=== PATIENT | male | born 1960 | race African-American/Black ===

== ENCOUNTER 2017-10-06 09:56 | Emergency (ER) | payer SELFPAY ==
[~2017-10-06] VITALS: Ht 180.3 cm; Wt 100.0 kg
[~2017-10-06 09:56] MED LIST: 1-ME1LIQ PO; GEMF600T PO; HYDR-2768 PO; LISI-363 PO; NAPR500 PO
[2017-10-06 09:59] VITALS: BP 192/120; PULSE 94; RESP 18; TEMP 98; O2SAT 97
[2017-10-06] MEDS ORDERED: HYDR25TA5 PO (10:17)
[2017-10-06] MEDS ORDERED: bp med PO (10:17)
[2017-10-06 10:18] VITALS: BP 178/120; PULSE 61
[2017-10-06 10:25] VITALS: BP_SYST 179; BP_SYST 180; BP_DIAS 113; BP_DIAS 115
[2017-10-06] MEDS ORDERED: SODIUM CHLORIDE 0.9% FLUSH 10 ML FLUSH IVF PRN (10:45)
[2017-10-06 10:57] LABS: AUTOMATED NEUTROPHIL # 5.7 TH/MM3 (1.8-7.7); BASOPHIL % 0.3 % (0.0-2.0); EOSINOPHIL # 0.2 TH/MM3 (0-0.4); EOSINOPHIL % 2.4 % (0.0-4.0); HEMATOCRIT 37.4 % (39.0-51.0); HEMOGLOBIN 12.6 GM/DL (13.0-17.0); LYMPH % 18.9 % (9.0-44.0); LYMPHOCYTE # 1.5 TH/MM3 (1.0-4.8); MEAN CORPUSCULAR HEMOGLOBIN 29.3 PG (27.0-34.0); MEAN CORPUSCULAR HGB CONC 33.7 % (32.0-36.0); MEAN PLATELET VOLUME 9.9 FL (7.0-11.0); MONO % 6.3 % (0.0-8.0); MONOCYTE # 0.5 TH/MM3 (0-0.9); NEUT % 72.1 % (16.0-70.0); PLATELET COUNT 277 TH/MM3 (150-450); RED CELL DISTRIBUTION WIDTH 16.5 % (11.6-17.2); WHITE BLOOD COUNT 7.9 TH/MM3 (4.0-11.0)
--- NOTE | 2017-10-06 11:01 | PD ---
HPI Chief Complaint: Hypertension Time Seen by Provider: 10:04 Travel History International Travel<30 days: No Contact w/Intl Traveler<30days: No Traveled to known affect area: No History of Present Illness HPI Patient is a 57-year-old male presents the emergency room for evaluation of hypertension. Patient reports that he has history of hypertension, he is on multiple medications for his blood pressure but cannot remember the names of his medications. Patient reports that he went to [facility] today for follow-up (well person check) and was told to come directly to the emergency room for evaluation as his blood pressure was over 200 systolic. Patient reports that he has been compliant with his blood pressure medications, reports that he does not remember which medications he is on at this time. Patient denies any headache or dizziness, denies any chest pain or shortness of breath. Patient denies any vision changes. Patient with absolutely no complaints in the emergency room. PFSH Past Medical History Hypertension: Yes Influenza Vaccination: No Past Surgical History Surgical History: No Previous Surgery Social History Alcohol Use: Yes (occas beer) Tobacco Use: Yes Substance Use: No Allergies-Medications (Allergen,Severity, Reaction): Coded Allergies: No Known Allergies (Unverified Adverse Reaction, Unknown, 10/06/17) Reported Meds & Prescriptions Reported Meds & Active Scripts Active Norvasc (Amlodipine Besylate) 5 Mg Tab 5 Mg PO DAILY Reported Metoprolol Tartrate 100 Mg Tab 100 Mg PO BID Hydrochlorothiazide 25 Mg Tab 25 Mg PO DAILY Review of Systems General / Constitutional: No: Fever Eyes: No: Visual changes HENT: No: Headaches Cardiovascular: No: Chest Pain or Discomfort Respiratory: No: Shortness of Breath Gastrointestinal: No: Abdominal Pain Genitourinary: No: Dysuria Musculoskeletal: No: Pain Skin: No Rash Neurologic: No: Weakness Psychiatric: No: Depression Endocrine: No: Polydipsia Hematologic/Lymphatic: No: Easy Bruising Physical Exam Narrative GENERAL: No acute distress, nontoxic SKIN: Focused skin assessment warm/dry. HEAD: Atraumatic. Normocephalic. EYES: Pupils equal and round. No scleral icterus. No injection or drainage. ENT: No nasal bleeding or discharge. Mucous membranes pink and moist. NECK: Trachea midline. No JVD. CARDIOVASCULAR: Regular rate and rhythm. No murmur appreciated. RESPIRATORY: No accessory muscle use. Clear to auscultation. Breath sounds equal bilaterally. GASTROINTESTINAL: Abdomen soft, non-tender, nondistended. Hepatic and splenic margins not palpable. MUSCULOSKELETAL: No obvious deformities. No clubbing. No cyanosis. No edema. NEUROLOGICAL: Awake and alert. No obvious cranial nerve deficits. Motor grossly within normal limits. Normal speech. PSYCHIATRIC: Appropriate mood and affect; insight and judgment normal. Data Data Last Documented VS Vital Signs Date Time Temp Pulse Resp B/P (MAP) Pulse Ox O2 Delivery O2 Flow Rate FiO2 10/06/17 10:25 180/113 (135) 179/115 (136) 10/06/17 10:18 61 10/06/17 09:59 98.0 18 97 Orders Orders Electrocardiogram (10/06/17 10:32) Basic Metabolic Panel (Bmp) (10/06/17 10:32) Complete Blood Count With Diff (10/06/17 10:32) Ecg Monitoring (10/06/17 10:32) Iv Access Insert/Monitor (10/06/17 10:32) Oximetry (10/06/17 10:32) Sodium Chloride 0.9% Flush (Ns Flush) (10/06/17 10:45) Amlodipine (Norvasc) (10/06/17 11:45) Labs Laboratory Tests Test 10/06/17 10:40 White Blood Count 7.9 TH/MM3 Red Blood Count 4.30 MIL/MM3 Hemoglobin 12.6 GM/DL Hematocrit 37.4 % Mean Corpuscular Volume 87.0 FL Mean Corpuscular Hemoglobin 29.3 PG Mean Corpuscular Hemoglobin Concent 33.7 % Red Cell Distribution Width 16.5 % Platelet Count 277 TH/MM3 Mean Platelet Volume 9.9 FL Neutrophils (%) (Auto) 72.1 % Lymphocytes (%) (Auto) 18.9 % Monocytes (%) (Auto) 6.3 % Eosinophils (%) (Auto) 2.4 % Basophils (%) (Auto) 0.3 % Neutrophils # (Auto) 5.7 TH/MM3 Lymphocytes # (Auto) 1.5 TH/MM3 Monocytes # (Auto) 0.5 TH/MM3 Eosinophils # (Auto) 0.2 TH/MM3 Basophils # (Auto) 0.0 TH/MM3 CBC Comment DIFF FINAL Differential Comment Blood Urea Nitrogen 11 MG/DL Creatinine 0.95 MG/DL Random Glucose 86 MG/DL Calcium Level 8.7 MG/DL Sodium Level 138 MEQ/L Potassium Level 3.9 MEQ/L Chloride Level 106 MEQ/L Carbon Dioxide Level 24.5 MEQ/L Anion Gap 8 MEQ/L Estimat Glomerular Filtration Rate 99 ML/MIN MDM Medical Decision Making Medical Screen Exam Complete: Yes Emergency Medical Condition: Yes Medical Record Reviewed: Yes Interpretation(s) Vital Signs Date Time Temp Pulse Resp B/P (MAP) Pulse Ox O2 Delivery O2 Flow Rate FiO2 10/06/17 10:25 180/113 (135) 179/115 (136) 10/06/17 10:18 61 178/120 (139) 10/06/17 09:59 98.0 94 18 192/120 (144) 97 Differential Diagnosis Hypertension, accelerated hypertension, hypertensive urgency Narrative Course During the course of the patients emergency department visit, the patients history, examination, and differential diagnosis were reviewed with the patient. The patient was placed on a cardiac care unit nurse with oximetry and frequent blood pressure monitoring. The patient had an IV access obtained and blood work sent for analysis. The patient was initially provided with no medication for hypertension as patient is unsure which medications he is on. Discussed with patient that I cannot optimize his medications if I do not know what he is taking. Call made to patient's primary care doctor for full medication list The patients laboratory studies were reviewed and remarkable for CBC & BMP Diagram 10/06/17 10:40 Calcium Level 8.7 Patient currently taking hydrochlorothiazide 25 mg as well as metoprolol 100 mg twice daily, will add Norvasc to his treatment regimen. Patient with no evidence of end organ damage, patient is safe to be discharged to home with outpatient follow-up. EKG at 1154 shows sinus bradycardia at 56 bpm, QT/QTc 430/422, patient with nonspecific ST and T-wave changes. Patient with nonspecific ST and T-wave changes on his EKG, there are no prior EKGs to compare. Given this abnormal EKG and elevated blood pressure, discussed with patient need for hospital admission for blood pressure control as well as for cardiac monitoring and serial troponins. Patient adamantly refuses admission to the hospital, patient requesting to leave AGAINST MEDICAL ADVICE. I will start patient on antihypertensive -Norvasc as his blood pressure is elevated and I do think he would benefit from this medication. Patient understands that he should follow-up with his primary care doctor as soon as possible, he understands that he may return to the emergency room at any time for further workup and monitoring. AMA: The risks of leaving against medical advice without further evaluation treatment were discussed with the patient. These risks include cardiac dysfunction, cardiac dysrhythmia, possible heart attack, possible stroke or . The patient indicated understanding of these risks and appeared to have the capacity to make this decision. Diagnosis Primary Impression: Hypertension Qualified Codes: I10 - Essential (primary) hypertension Additional Impression: Left against medical advice Patient Instructions: General Instructions Additional Instructions: Please follow up with your primary care doctor as soon as possible Return to the ER at any time for re-evaluation of your symptoms Return to the ER if symptoms worsen or progress Return to the ER as needed Please take all medications as prescribed Med/Other Pt SpecificInfo: Prescription(s) given Scripts Amlodipine (Norvasc) 5 Mg Tab 5 MG PO DAILY for Blood Pressure Management, #30 TAB 0 Refills Prov: Radha Porter DO 10/06/17 Disposition: 07 AGAINST MEDICAL ADVICE Condition: Serious Radha Porter DO Oct 06, 2017 11:01
[2017-10-06] MEDS ORDERED: METO100T PO (11:09)
[2017-10-06 11:16] LABS: BICARBONATE 24.5 MEQ/L (21.0-32.0); CALCIUM 8.7 MG/DL (8.5-10.1); CREATININE 0.95 MG/DL (0.60-1.30)
[2017-10-06] MEDS ORDERED: AMLO5 PO (11:47)
[2017-10-06 12:21] VITALS: BP 172/112; PULSE 59; RESP 17; O2SAT 98
--- NOTE | 2017-10-06 22:17 | EKG ---
Date Performed: 10/06/2017 Time Performed: 11:54:06 PTAGE: 57 years EKG: SINUS BRADYCARDIA POSSIBLE LEFT ATRIAL ENLARGEMENT NONSPECIFIC ST & T-WAVE ABNORMALITY BORD JONI ECG INTERPRETATION BASED ON A DEFAULT AGE OF 41 YEARS NO PREVIOUS TRACING DOCTOR: Franklin Linda Interpretating Date/Time 10/06/2017 22:15:48
== END 2017-10-06 12:51 | disposition left against medical advice (07) ==
LOC: NEPD 09:56
DX: I10 Essential (primary) hypertension (principal); Z72.0 Tobacco use
CPT/HCPCS: 80048; 85025; 93005; 99284